=== PATIENT | male | born 1990 | race Native Hawaiian/Other Pacific Islander ===

== ENCOUNTER 2021-03-21 09:03 | Day surgery (SDC) | payer OTHER ==
[~2021-03-21 09:03] MED LIST: MIDAZOLAM 2 MG/2 ML VIAL ONE; PROPOFOL 500 MG/50 ML 0 MG/0 ML VIAL ONE; fentaNYL 100 MCG/2 ML VIAL ONE
[2021-03-21] MEDS ORDERED: CEFAZOLIN SODIUM IN 0.9 % NACL 2 GM/100 ML BAG IV ONE (09:16)
[2021-03-21] MEDS ORDERED: LACTATED RINGERS 1,000 ML IV ONE ×2 (09:24→13:04)
--- NOTE | 2021-03-21 09:42 | ANESTHESIA ---
Pre-Anesthesia VS, & Labs - Diagnosis right symptomatic gymomastia - Procedure right simple mastectomy Vital Signs: Temp Pulse Resp BP Pulse Ox 36.2 C L 51 L 16 150/100 H 100 03/21/21 09:25 03/21/21 09:25 03/21/21 09:25 03/21/21 09:25 03/21/21 09:25 Height: 5 ft 5 in Weight (kg): 74.4 kg Body Mass Index: 27.3 BMI Classification: Overweight - NPO >8 hours - Lab Results Lab results reviewed: Yes Home Medications and Allergies Home Medications: Ambulatory Orders No Known Home Medications 03/21/21 No Known Home Medications 03/21/21 Allergies/Adverse Reactions: Allergies Allergy/AdvReac Type Severity Reaction Status Date / Time No Known Drug Allergies Allergy Verified 03/21/21 09:24 Anes History & Medical History - Anesthetic History Anesthesia Complications: reports: No previous complications Family history of Anesthesia Complications: Denies Family history of Malignant Hyperthermia: Denies - Medical History Cardiovascular: reports: None Pulmonary: reports: None Gastrointestinal: reports: None Urinary: reports: None Musculoskeletal: reports: None Endocrine/Autoimmune: reports: None Skin: reports: None Exam General: Alert, Oriented x3, Cooperative, No acute distress Dental: WNL Mouth Openin Fingerbreadth Neck Mobility: Normal Mallampati classification: II Respiratory: Lungs clear, Normal breath sounds, No respiratory distress, No accessory muscle use Cardiovascular: Regular rate, Normal S1, Normal S2, No murmurs Plan Anesthesia Type: General Consent for Procedure(s) Verified and Reviewed: Yes Code Status: Attempt Resuscitation ASA classification: 1-Healthy patient Is this case an emergency?: No
[2021-03-21] MEDS ORDERED: ATROPINE ABBOJECT 1 MG/10 ML SYRINGE IVP PRN (10:21)
[2021-03-21] MEDS ORDERED: HYDROmorphone 0.5 MG/0.5 ML SYRINGE IVP PRN (10:21)
[2021-03-21] MEDS ORDERED: fentaNYL 100 MCG/2 ML VIAL IVP PRN (10:21)
[2021-03-21] MEDS ORDERED: ONDANSETRON 4 MG/2 ML VIAL IVP PRN ×2 (10:21→13:02)
[2021-03-21] MEDS ORDERED: NALOXONE 0.4 MG/ML VIAL IVP PRN (10:21)
[2021-03-21] MEDS ORDERED: MORPHINE 2 MG/ML CARPUJECT IVP PRN (10:21)
[2021-03-21] MEDS ORDERED: METOCLOPRAMIDE 10 MG/2 ML VIAL IVP PRN (10:21)
[2021-03-21] MEDS ORDERED: ePHEDrine 50 MG/ML VIAL IVP PRN (10:21)
[2021-03-21] MEDS ORDERED: LACTATED RINGERS 1,000 ML IV SCH (11:00)
[2021-03-21] MEDS ORDERED: PROPOFOL 200 MG/20 ML VIAL IVP ONE (11:31)
[2021-03-21] MEDS ORDERED: LIDOCAINE-MPF 2% 5 ML VIAL ONE (11:31)
[2021-03-21] MEDS ORDERED: fentaNYL 100 MCG/2 ML VIAL ONE (11:31)
[2021-03-21] MEDS ORDERED: MIDAZOLAM 2 MG/2 ML VIAL ONE (11:31)
[2021-03-21] MEDS ORDERED: LIDOCAINE 2%-EPI 1:100000 20 ML MDV ONE (11:32)
[2021-03-21] MEDS ORDERED: BUPIVACAINE 0.25% PF 30 ML VIAL ONE (11:33)
[2021-03-21] MEDS ORDERED: BUPIVACAINE 0.5% PF 10 ML VIAL ONE (11:33)
[2021-03-21] MEDS ORDERED: BUPIVACAINE 0.25% PF 30 ML VIAL SUBQ ONE (12:09)
[2021-03-21] MEDS ORDERED: LIDOCAINE 1%-EPI 1:100000 20 ML MDV SUBQ ONE (12:10)
[2021-03-21] MEDS ORDERED: ONDANSETRON 4 MG/2 ML VIAL ONE (12:26)
[2021-03-21] MEDS ORDERED: DEXAMETHASONE 4 MG/ML VIAL ONE (12:26)
[2021-03-21] MEDS ORDERED: KETOROLAC 30 MG/ML VIAL ONE (12:47)
[2021-03-21] MEDS ORDERED: HYDROmorphone 1 MG/ML CARPUJECT ONE (12:48)
--- NOTE | 2021-03-21 13:00 | OPERATIVE REPORT ---
Operative Report - General Procedure Date: 03/21/21 Planned Procedure: After obtaining informed consent, the patient is brought to the operating room placed in supine position on the operating table. Following successful induction of the general anesthesia, appropriate padding of all bony prom inences, and placement appropriate monitors, the right breast and chest were prepped and draped in the standard surgical fashion.A timeout was held per scope protocol.All elements of the surgical safety checklist were followed before, during, and after the procedure. We began the procedure by infiltrating a mixture of local anesthetics in the right breast to provide a field block.The patient had been previously seen in the preop holding area and all important landmarks marked clearly so that our incision was in a natural skin crease in the inferior lateral aspect of the right breastThis incision was created sharply and carried through the skin and subcutaneous tissue. The palpable mass was then carefully dissected free from the dermis using a mixture of sharp dissection and LigaSure.The post areolar tissue was notably fibrotic. The mass was pretty well-defined.The entire area of the mass had been marked in the preop holding area where it was palpable so these lines were followed carefully for the dissectionOnce the mass was freed from the overlying dermis, we lifted it off of the retromammary bursa and the dissection was continued there with LigaSure. Dissection was continued in a circumferential fashion until the entire palpable mass was freed and removed from the lateral incision. The mass was marked with a short stitch superior, long stitch lateral, and double stitch anterior. The anterior stitches are specifically at the nipple surface.The nipple and all of the overlying skin appeared to be well vascularized. The wound was irrigated with warm saline solution and checked once again for hemostasis. It was aspirated free of all fluid particulate matter. The lateral incision was then closed in 3 layers with Vicryl, Monocryl, and nylon suture. All sponge, needle, and instrument counts were correct at the conclusion of the case. The patient was let awake from anesthesia without difficulty and taken to the postanesthesia care unit in good condition.
[2021-03-21] MEDS ORDERED: ACETAMINOPHEN 325 MG TABLET PO PRN (13:02)
[2021-03-21] MEDS ORDERED: oxyCODONE 5 MG TABLET PO PRN (13:02)
[2021-03-21] MEDS ORDERED: IBUPROFEN 600 MG TABLET PO PRN (13:02)
[2021-03-21 14:13] VITALS: BP 145/88
--- NOTE | 2021-03-21 15:05 | ANESTHESIA POST OP EVALUATION ---
Anesthesia Post Eval - Post Anesthesia Eval Vitals: Last Vital Signs Temp 36.5 C 03/21/21 14:12 Pulse 63 03/21/21 14:12 Resp 16 03/21/21 14:12 BP 145/88 H 03/21/21 14:12 Pulse Ox 100 03/21/21 14:12 CV Function Including HR & BP: Stable Pain Control: Satisfactory Nausea & Vomiting: Negative Mental Status: Baseline Respiratory Status: Airway Patent Hydration Status: Satisfactory Anesthesia Complications: None
== END 2021-03-21 09:04 | disposition home or self-care (01) ==
LOC: SDS 09:03
PROVIDERS: ATTEND Surgery
PROC: 0HBT0ZZ Excision of Right Breast, Open Approach (ICD-10-PCS; principal; 2021-03-21 10:30)
DX: N62 Hypertrophy of breast (principal)
CPT/HCPCS: 19300; J0690; J1170; J7120

== ENCOUNTER 2022-12-14 13:57 | Outpatient (CLI) | payer OTHER ==
--- NOTE | 2022-12-14 14:27 | Sleep Patient Instructions ---
Sleep Center Visit Summary - Patient Visit Information Reason for Visit: Initial consult for evaluation of sleep disordered breathing and other sleep issues. - Patient Instructions Instructions Attached: Sleep Study, Sleep Clinic Visit, Sleep Study Home Monitor Additional Instructions: You will be completing a sleep study, either an in-lab polysomnography (PSG) or home sleep study (HST). You will follow-up in the sleep care office after the sleep study is completed to hear the results and talk about therapy, if needed. You will be called by our office staff to schedule this appointment, but you may contact us with any questions. - Clinic Information Contact: [facility] [address] [place] [address] [email or web address] T: [phone]
--- NOTE | 2022-12-14 14:30 | SLEEP CARE CONSULTATION ---
Information from patient questionnaire entered by Maria Eugenia Aragon. I have reviewed and concur with the information entered by Maria Eugenia Aragon. This document represents the service I personally performed and the decisions made by me, Ana Toure ARNP. History of Present Illness Service Date and Time: 12/14/2022 1357 Reason for Visit: New patient Accompanied by: Spouse (and baby) Chief Complaint: reports: Unrefreshed sleep, Snoring, Excessive daytime sleepiness, Observed pauses in breathing, Fatigue, Frequent awakenings at night Date of Onset: 2-3 yrs; snoring getting worse Usual bedtime: 9PM Time it takes to fall asleep: within 5 minutes Snores at night: Yes Observed to quit breathing while asleep: Yes Sleeps alone due to snoring: No Number of times waking at night: 5-6 Reasons for waking at night: reports: Snoring, Bathroom, Other (UNKNOWN). denies: Choking, Gasping for air Toss, Turn, or Twitch while sleeping: Yes Recalls having dreams: No Usually gets out of bed at: 530AM; weekends 0900 Feels refreshed in the morning: No Morning headache: Yes (3-4 days a week; resolve in 2-3 hours) Sleepy or fatigued during the day: Yes Ever fallen asleep while driving: Yes (drowsy driving; no accidents) Takes day naps: No Dreams during day naps: No Prior sleep studies: No Additional HPI information: I had the pleasure of seeing SARAH DIAZ today regarding the possibility of him having a sleep disorder. His current complaints are excessive daytime sleepiness, fatigue, frequent night awakenings, observed pauses in breathing, snoring and unrefreshed sleep. His accompanied by his who helps with history. She feels his snoring is getting worse and he is stopping breathing often. He is gasping in his sleep after these pauses in breathing. He also s tates he is tired all the time. He does not wake up feeling rested. - Parasomnia Symptoms Ever been unable to move upon waking from sleep: No Walks in sleep: No Talks in sleep: Yes (occasional noises in sleep) Ever acted out dreams in sleep: No Ever felt weak in the knees when startled or emotional: No Bothered by creepy, crawly, restless sensations in legs: No Problems with memory or concentration: No Subjective Initial [place] Sleepiness Scale score: 16 (12/14/22) Past Medical History Past Medical History: reports: Hypertension Social History The patient's occupation is a AM. Patient is and lives in [place]. Have you smoked in the past 12 months: No Cigarettes per day (20/pack): 2 (occasional/social) Years of smokin Quit date: 2021 Smoking Pack Years: 0.1 Alcohol use: Yes Alcohol amount and frequency: 2-3 X WEEKLY Caffeine use: Yes Caffeine amount and frequency: 1 energy drink EVERYDAY Family History Family history of sleep disordered breathing: Yes Family Hx Sleep Apnea: Father: Snoring, Sleep apnea - Treated Allergies and Home Medications Known drug allergies: No Drug allergies reviewed: Yes Home medication list reviewed: Yes Allergy and home medication list: Allergies No Known Drug Allergies Allergy (Verified 12/13/22 13:44) Medications: Lisinopril Review of Systems Cardiovascular: reports: high blood pressure Gastrointestinal: denies: heartburn Neurological: reports: headaches. denies: head trauma Psychiatric: denies: anxiety, depression Ear/Nose/Throat: reports: nose bleeds, wisdom teeth removed (took out 2 in [employer]). denies: injury to nose, tonsillectomy Endocrine: reports: sluggishness Musculoskeletal: reports: neck pain, back pain Physical Exam Vital signs obtained and entered by: MARIA EUGENIA Mckee MA Blood Pressure: 128/78 (LEFT ARM) Cuff size: regular Heart Rate: 67 O2 Saturation: 99 Height: 5 ft 5 in Weight: 162 lb 6.4 oz Body Mass Index: 27.0 BMI Classification: Overweight Neck circumference: 16 Mouth and throat: narrow oropharynx Soft palate: long Hard palate: normal Uvula: normal Uvula visualization: 25% Mallampati Class III Tongue: enlarged in size with teeth juares on lateral edges Tonsils: small Neck: normal w/o lymphadenopathy or thyromegaly Heart: regular rate and rhythm Lungs: clear bilaterally Impression and Plan 1. Suspected Obstructive Sleep Apnea-Hypopnea Syndrome, as suggested by a history of loud and irregular snoring, observed cessation of breath while asleep, gasping or choking in sleep, morning headache, frequent awakening during the night, unrefreshed sleep, and excessive daytime sleepiness. Narrow oropharynx and obesity are common predisposing factors for obstructive sleep apnea-hypopnea syndrome. I recommend proceeding to polysomnography to confirm the diagnosis and to assess severity. If the patient has significant sleep disordered breathing, a manual CPAP titration study will also be performed to find the optimal treatment pressure. I informed the patient of what the sleep studies involve and after some discussion, obtained agreement to proceed. The pathophysiology of obstructive sleep apnea-hypopnea syndrome was discussed with the patient and health risks of cardiovascular and cerebrovascular disease if not treated. Risks of drowsy driving discussed in detail and patient advised to avoid long distance driving and to bone puller at the first sign of drowsiness. Patient agreed to plan. * Schedule polysomnography. * Avoid long distance driving or driving when feeling sleepy. * Avoid alcohol, sedative and muscle relaxant around bedtime. * Attempt to lose weight. * Review instructions provided by trained office staff on how to prepare for the sleep study. * Return for follow-up after sleep study completed. Counseling Topics: Weight loss health impact Visit Type: In Office Time Spent with Patient (minutes): 30 Provider Statement: I spent 100% of the Face to Face Visit with the patient with greater than 50% spent counseling the patient and coordination of care.
[2022-12-14 14:33] VITALS: BP 128/78
== END 2022-12-14 13:58 | disposition home or self-care (01) ==
LOC: SC 13:57
PROVIDERS: ATTEND Nurse Practitioner Family
DX: R06.83 Snoring (principal); R06.81 Apnea, not elsewhere classified; R51.9 Headache, unspecified; G47.8 Other sleep disorders; G47.10 Hypersomnia, unspecified; E66.3 Overweight; Z68.27 Body mass index [BMI] 27.0-27.9, adult; Z87.891 Personal history of nicotine dependence
CPT/HCPCS: 99203; 99212

== ENCOUNTER 2023-01-15 19:33 | Outpatient (CLI) | payer OTHER | END 2023-01-15 19:34 | disposition home or self-care (01) | LOC: SC 19:33 | PROVIDERS: ATTEND Nurse Practitioner Family | DX: G47.10 Hypersomnia, unspecified (principal); R51.9 Headache, unspecified; G47.8 Other sleep disorders; R06.81 Apnea, not elsewhere classified; F17.210 Nicotine dependence, cigarettes, uncomplicated | CPT/HCPCS: 95810 ==

== ENCOUNTER 2023-02-23 09:07 | Outpatient (CLI) | payer OTHER ==
--- NOTE | 2023-02-23 08:55 | SLEEP CARE CONSULTATION ---
Information from patient questionnaire entered by Maria Eugenia Aragon. I have reviewed and concur with the information entered by Maria Eugenia Aragon. This document represents the service I personally performed and the decisions made by , Ana Toure ARNP. History of Present Illness Service Date and Time: 02/23/2023 0900 Initial [place] Sleepiness Scale score: 16 (12/14/22) Current [place] Sleepiness Scale score: 15 (02/23/23) Additional HPI information: SARAH DIAZ returns via video telehealth visit for follow up and results of the recently performed polysomnography. He has a history of hypertension. The patient was informed of the following findings: No significant sleep disordered breathing with an average AHI of 1.0 and arlene oxygen saturation of 91%. I explained the pathophysiology behind obstructive sleep apnea. Patient does not have sleep apnea and was advised how weight gain could increase the risk of developing sleep apnea in the future. Patient has moderate snoring. Snoring can be reduced by weight loss. Weight loss is best achieved with diet consult. Patient instructed to contact PCP for referral. Snoring can also be treated with an oral appliance from a dentist. Advised to check insurance coverage. In addition, an ENT evaluation can be do to see if other treatment is indicated. Patient counseled not drink alcohol less than 4 hours before bedtime as it can increase snoring and apnea. Patient was cautioned about risks of drowsy driving until sleepiness symptoms resolve. Patient denies drowsy driving. Sleep Study - Results Type of Sleep Study: Polysomnography (COMPLETED 01/15/23) Prior sleep studies: No Polysomnography/Home Sleep Study results: IMPRESSION: The quality of the study is good. The patient had normal sleep efficiency. The sleep architecture was relatively normal as well considering the first night effect. Respiratory monitoring showed no significant sleep disordered breathing (AHI = 1.0) or hypoxia (arlene oxygen saturation of 91%). The patient only slept supine during this study (supine AHI = 1.0; non-supine = 0.00). Snore was infrequent and moderate in intensity. There was no significant periodic leg movement of sleep. Cardiac rhythm was normal sinus rhythm without significant arrhythmia. No abnormal behavior (parasomnia) observed during the night. Allergies and Home Medications Known drug allergies: No Drug allergies reviewed: Yes Home medication list reviewed: Yes (no changes) Allergy and home medication list: Allergies No Known Drug Allergies Allergy (Verified 02/22/23 15:45) Review of Systems Review of systems same as previous: Yes (no changes) Physical Exam Vital signs obtained and entered by: MARIA EUGENIA Mckee MA Height: 5 ft 5 in (PER PT) Weight: 155 lb (PER PT) Body Mass Index: 25.7 BMI Classification: Overweight Impression and Plan 1. Snoring but no significant sleep disordered breathing when sleeping supine. Patient advised that often weight loss will reduce snoring as well as apnea risk. An oral appliance can also be used for snoring. This would require a dental consultation. Patient cautioned not to use other online/OTC appliances as can cause bite issues. A list of accredited dentists in [facility] and one local dentist who makes oral appliances is available in our office. Patient is advised to check if insurance will cover. An ENT consult can also be helpful to determine if any other treatment is an option. 2. Overweight, unspecified. Currently patients BMI is 25.7. Obesity increases the risk of apnea, CPAP pressure requirements and overall health risks especially cardiovascular and diabetes. Thus patient is advised to maintain a weight. * Attempt to lose weight * Avoid alcohol consumption near bedtime * The patient is cautioned about driving until sleepiness is completely resolved. * Return as needed for follow up. Visit Type: Telehealth Video Video Type: Doximity Patient Location: Car Location of Provider: Office Patient agrees and consents to this telehealth visit type: Yes Patient agrees to have their insurance billed: Yes Time Spent with Patient (minutes): 11 Provider Statement: I spent 100% of the Telehealth Video Call with the patient with greater than 50% spent counseling the patient and coordination of care.
== END 2023-02-23 09:08 | disposition home or self-care (01) ==
LOC: SC 09:07
PROVIDERS: ATTEND Nurse Practitioner Family
DX: R06.83 Snoring (principal); E66.3 Overweight; Z68.25 Body mass index [BMI] 25.0-25.9, adult

== ENCOUNTER 2024-01-10 14:37 | Outpatient (CLI) | payer OTHER ==
--- NOTE | 2024-01-10 15:15 | Sleep Patient Instructions ---
Sleep Center Visit Summary - Patient Visit Information Reason for Visit: 10-month follow-up - Patient Instructions Instructions Attached: Sleep Study Home Monitor Additional Instructions: You will be completing a sleep study, either an in-lab polysomnography (PSG) or home sleep study (HST). You will follow-up in the sleep care office after the sleep study is completed to hear the results and talk about therapy, if needed. You will be called by our office staff to schedule this appointment, but you may contact us with any questions. - Clinic Information Contact: [facility] [address] [place] [id number] [email or web address] T: [phone]
[2024-01-10 15:17] VITALS: BP 132/93; O2SAT 99
--- NOTE | 2024-01-10 15:17 | SLEEP CARE CONSULTATION ---
Information from patient questionnaire entered by Maria Eugenia Aragon. I have reviewed and concur with the information entered by Maria Eugenia Aragon. This document represents the service I personally performed and the decisions made by me, Ana Toure ARNP. History of Present Illness Service Date and Time: 01/10/2024 1437 Reason for follow up: other (10 MONTH F/U SYMPTOMS WORSE) Prior sleep studies: No Type of Sleep Study: Polysomnography (COMPLETED 01/15/23) HPI additional information: I had the pleasure of seeing SARAH DIAZ today in a 10 month followup. He was last seen in our office to review results of sleep study dated 01/15/23 which showed an AHI of 1. His current complaints are excessive daytime sleepiness, unrefreshed sleep, snoring, fatigue, frequent night awakenings and observed pauses in breathing. He thinks things may be a little worse. The patient tells me that he normally goes to bed around 10 pm, and it takes him approximately 30 minutes to fall asleep. He has been told that he snores loudly and irregularly at night. He has been observed to stop breathing in his sleep. His bed partner can still sleep in the same bed. He can recall waking up on the average of 2-3 times during the night. Most of the time he wakes up because of unknown reasons or bathroom. He has occasionally awakened for his own snoring, choking, and having to gasp for air. There is not a lot of tossing and turning in his sleep. Generally there is no recollection of dreams. He usually wakes up at 0500 and does not feel refreshed. He usually does not have a morning headache. During the day he complains of fe eling sleepy and fatigued. He has never fallen asleep while driving nor has any accident due to sleepiness. He usually naps for about 30 minutes during the day after unintentionally falling asleep after work when sitting on the couch. If he naps, upon falling asleep during the day he denies having vivid dreams. There is somniloquy (sleep talking) but no somnambulism (sleep walking). He reports galicia ving impaired concentration during the day. Sleep Study - Results Type of Sleep Study: Polysomnography (COMPLETED 01/15/23) Prior sleep studies: No Subjective Initial [place] Sleepiness Scale score: 16 (12/14/22) Current [place] Sleepiness Scale score: 15 (01/10/24) Allergies and Home Medications Known drug allergies: No Drug allergies reviewed: Yes Home medication list reviewed: Yes (Lisinopril) Allergy and home medication list: Allergies No Known Drug Allergies Allergy (Verified 01/10/24 14:45) Review of Systems Review of systems same as previous: Yes (NO CHANGE) Physical Exam Vital signs obtained and entered by: MARIA EUGENIA Mckee MA Blood Pressure: 132/93 (RIGHT ARM) Cuff size: regular Heart Rate: 87 O2 Saturation: 99 Height: 5 ft 5 in Weight: 174 lb (PER PT) Body Mass Index: 28.9 BMI Classification: Overweight Impression and Plan 1. Suspected Obstructive Sleep Apnea-Hypopnea Syndrome, as suggested by a history of loud and irregular snoring, observed cessation of breath while asleep, gasping or choking in sleep, frequent awakening during the night, unrefreshed sleep, and excessive daytime sleepiness. He has a history of hypertension. I recommend proceeding to polysomnography to confirm the diagnosis and to assess severity. If the patient has significant sleep disordered breathing, a manual CPAP titration study will also be performed to find the optimal treatment pressure. I informed the patient of what the sleep studies involve and after some discussion, obtained agreement to proceed. The pathophysiology of obstructive sleep apnea-hypopnea syndrome was discussed with the patient and health risks of cardiovascular and cerebrovascular disease if not treated. Risks of drowsy driving discussed in detail and patient advised to avoid long distance driving and to ice puller at the first sign of drowsiness. Patient agreed to plan. * Schedule polysomnography +- manual CPAP titration study and return in 1-2 weeks after the study to discuss result and initiate therapy. * Avoid long distance driving or driving when feeling sleepy. * Avoid alcohol, sedative and muscle relaxant around bedtime. * Attempt to lose weight. * Review instructions provided by trained office staff on how to prepare for the sleep study. * Return for follow-up after sleep study completed. Counseling Topics: Weight loss health impact Plan: PSG/HST and followup Visit Type: In Office Time Spent with Patient (minutes): 20 Provider Statement: I spent 100% of the Face to Face Visit with the patient with greater than 50% spent counseling the patient and coordination of care.
== END 2024-01-10 14:38 | disposition home or self-care (01) ==
LOC: SC 14:37
PROVIDERS: ATTEND Nurse Practitioner Family
DX: R06.83 Snoring (principal); R06.81 Apnea, not elsewhere classified; G47.8 Other sleep disorders; G47.10 Hypersomnia, unspecified; I10 Essential (primary) hypertension; E66.3 Overweight; Z68.28 Body mass index [BMI] 28.0-28.9, adult
CPT/HCPCS: 99212; 99213

== ENCOUNTER 2024-01-23 08:52 | Outpatient (CLI) | payer OTHER | END 2024-01-23 08:53 | disposition home or self-care (01) | LOC: SC 08:52 | PROVIDERS: ATTEND Nurse Practitioner Family | DX: R06.83 Snoring (principal); G47.8 Other sleep disorders; R06.81 Apnea, not elsewhere classified; G47.10 Hypersomnia, unspecified; I10 Essential (primary) hypertension; E66.3 Overweight; Z68.29 Body mass index [BMI] 29.0-29.9, adult | CPT/HCPCS: 95806 ==

== ENCOUNTER 2024-02-13 14:22 | Outpatient (CLI) | payer OTHER ==
--- NOTE | 2024-02-13 14:37 | Sleep Patient Instructions ---
Sleep Center Visit Summary - Patient Visit Information Reason for Visit: Sleep study follow-up - Patient Instructions Instructions Attached: Snoring Tips Prevent Additional Instructions: Your sleep study today was negative for significant sleep disordered breathing. You were found to have episodes of snoring. There are different ways to control snoring including weight loss, oral devices made by a dentist or surgical options through ENT specialist. You should not use oral devices that do not fit properly because they can affect your bite. You should also check insurance coverage of oral devices for snoring because they may not be cover well. You may obtain a referral to an ENT specialist through your primary provider. Follow-up as needed. - Clinic Information Contact: [facility] [address] [place] [address] [email or web address] T: [phone]
--- NOTE | 2024-02-13 14:52 | SLEEP CARE CONSULTATION ---
Information from patient questionnaire entered by Abdias Hernández. I have reviewed and concur with the information entered by Abdias Hernández. This document represents the service I personally performed and the decisions made by , Ana Toure ARNP. History of Present Illness Service Date and Time: 02/13/2024 142 Initial [place] Sleepiness Scale score: 16 (12/14/22) Current [place] Sleepiness Scale score: 15 (02/13/24) Additional HPI information: SARAH DIAZ returns for follow up and results of the recently performed home sleep study done on 01/24/24. The patient was informed of the following findings: No significant sleep disor dered breathing with an average AHI of 2.5 and arlene oxygen saturation of 90%. I explained the pathophysiology behind obstructive sleep apnea. Patient does not have sleep apnea and was advised how weight gain could increase the risk of developing sleep apnea in the future. I strongly encouraged the patient to lose weight. Patient has moderate snoring. Snoring can be reduced by weight loss. Weight loss is best achieved with diet consult. Patient instructed to contact PCP for referral. Snoring can also be treated with an oral appliance from a dentist. Advised to check insurance coverage. In addition, an ENT evaluation can be do to see if other treatment is indicated. Patient counseled not drink alcohol less than 4 hours before bedtime as it can increase snoring and apnea. Patient was cautioned about risks of drowsy driving until sleepiness symptoms resolve. Patient denies drowsy driving. Sleep Study - Results Type of Sleep Study: Polysomnography (COMPLETED 01/15/23) Prior sleep studies: No Polysomnography/Home Sleep Study results: Physician Impression: The quality of the study is good. The length of the study is adequate (> 240 minutes). Please also see the tabulated and graphic data. 1. No significant sleep disordered breathing, with an AHI of 2.5/hr and arlene SaO2 of 90%. During the study, the patient had 6 apneas (6 obstructive, 0 central, 0 mixed) and 10 hypopneas. The longest episode lasted 114.5 seconds. Few respiratory events occurred more frequently during supine sleep (supine AHI was 3.1 and non-supine, 1.41). Allergies and Home Medications Known drug allergies: No Drug allergies reviewed: Yes Home medication list reviewed: Yes (no changes) Allergy and home medication list: Allergies No Known Drug Allergies Allergy (Verified 01/10/24 14:45) Review of Systems Review of systems same as previous: Yes (no changes) Physical Exam Vital signs obtained and entered by: Ana Arguello NP Blood Pressure: 148/97 Cuff size: regular (left arm) Heart Rate: 74 O2 Saturation: 100 Height: 5 ft 5 in Weight: 168 lb 9.6 oz Body Mass Index: 28.0 BMI Classification: Overweight Impression and Plan 1. Snoring but no significant sleep disordered breathing. Patient advised that often weight loss will reduce snoring as well as apnea risk. An oral appliance can also be used for snoring. This would require a dental consultation. Patient cautioned not to use other online appliances as can cause bite issues. Patient is advised to check if insurance will cover. An ENT consult can also be helpful to determine if any other treatment is an option. 2. Overweight, unspecified. Currently patients BMI is 28. Obesity increases the risk of apnea and overall health risks especially cardiovascular and diabetes. Thus patient is advised to lose weight. * Attempt to lose weight * Avoid alcohol consumption near bedtime * Return as needed for follow up. Counseling Topics: Weight loss health impact Visit Type: In Office Time Spent with Patient (minutes): 11 Provider Statement: I spent 100% of the Face to Face Visit with the patient with greater than 50% spent counseling the patient and coordination of care.
[2024-02-13 15:01] VITALS: BP 148/97; O2SAT 100
== END 2024-02-13 14:23 | disposition home or self-care (01) ==
LOC: SC 14:22
PROVIDERS: ATTEND Nurse Practitioner Family
DX: R06.83 Snoring (principal); E66.3 Overweight; Z68.28 Body mass index [BMI] 28.0-28.9, adult
CPT/HCPCS: 99212